=== PATIENT | female | born 2000 | race African-American/Black ===

== ENCOUNTER 2018-09-19 17:58 | Emergency (ER) | payer OTHER ==
[2018-09-19 19:30] LABS: ABS Basophils 0 10^3/ul (0-0.2); ABS Eosinophils 0.1 10^3/ul (0-0.6); ABS Lymphocytes 1.6 10^3/ul (1.0-4.8); ABS Monocytes 0.3 10^3/ul (0-0.8); ABS Neutrophils 2.6 10^3/ul (1.5-7.7); ABS Nucleated RBC 0 10^3/ul; Eosinophil % 1.5 %; Hematocrit 38 % (35-47); Hemoglobin 12.5 g/dl (12.0-16.0); Lymphocyte % 33.7 %; Mean Corpuscular HGB Conc 33 g/dl (31-36); Mean Corpuscular Hemoglobin 30 pg (27-31); Mean Corpuscular Volume 89 fL (80-97); Mean Platelet Volume 8.7 fL (7.4-10.4); Nucleated Red Blood Cells % 0.1; Platelet Count 232 10^3/ul (150-450); Red Cell Distribution Width 16 % (10.5-15); White Blood Count 4.6 10^3/ul (3.5-10.8)
[2018-09-19 19:53] LABS: ALT 9 U/L (7-52); AST 17 U/L (13-39); Albumin 4.4 g/dL (3.2-5.2); Albumin/Globulin Ratio 1.6 (1-3); Alkaline Phosphatase 46 U/L (34-104); Anion Gap 8 mmol/L (2-11); BUN/Creatinine Ratio 16.7 (8-20); Blood Urea Nitrogen 12 mg/dL (6-24); C Reactive Protein < 1.00 mg/L (<8.01); CO2 Carbon Dioxide 29 mmol/L (22-32); Calcium 9.2 mg/dL (8.6-10.3); Chloride 103 mmol/L (101-111); EGFR African American 126.3 (>60); EGFR Non-African American 104.3 (>60); Globulin 2.8 g/dL (2-4); Glucose 81 mg/dL (70-100); Potassium 3.6 mmol/L (3.5-5.0); Sodium 140 mmol/L (135-145); Total Protein 7.2 g/dL (6.4-8.9)
[2018-09-19 19:57] LABS: HCG Pregnancy < 0.60 mIU/mL
[2018-09-19] MEDS ORDERED: Ketorolac INJ* 30 MG/ML 1 ML VIAL IV PUSH ONE (22:35)
[2018-09-19] MEDS ORDERED: Ondansetron INJ* 2 MG/ML VIAL IV ONE (22:35)
[2018-09-19] MEDS ORDERED: NS 0.9% 1000 ML** 3,000 ML IV ONE (22:35)
--- NOTE | 2018-09-19 22:36 | ED ---
Abdominal Pain/Female - HPI Summary HPI Summary: The patient is a 17 y/o F presenting to [facility] with a chief complaint of sudden onset intermittent episodes of suprapubic and LLQ abd pain with hematochezia for the last month and worsening symptoms in the last 5 days. She states that at onset, she had abd cramping with a few tablespoons of bright blood in her stool, and then the cramping resolved but the blood in stool continued up until now with more than half of her BMs containing blood. More recently, in the last 5 days, she has been nauseous with pain radiating from her abd to her back, and an episode of syncope this morning due to pain. The pain does not have any alleviating factors, but it is aggravated by palpation, which she found out from [facility]. Pain is not aggravated by menstrual cycle. The pain is currently rated 7/10 in severity. She denies medical and surgical hx, no previous symptoms of GI issues. She currently takes control, Cymbalta, and iron. LNMP: August 29, 2018. - History of Current Complaint Chief Complaint: EDAbdPain Stated Complaint: ABD PAIN PER PT Time Seen by Provider: 09/19/18 22:26 Hx Obtained From: Patient Onset/Duration: Sudden Onset, Lasting Weeks, Still Present Timing: Weeks Severity Initially: Mild Severity Currently: Moderate Pain Intensity: 7 Pain Scale Used: 0-10 Numeric Location: Discrete At: LLQ, Suprapubic Radiates: Yes Radiates to: Back - low back especially on left Character: Dull Aggravating Factor(s): Other: - palpation Alleviating Factor(s): Nothing Associated Signs and Symptoms: Positive: Back Pain - low back, Blood in Stool, Nausea, Vomiting, Other: - syncope. Negative: Diarrhea Allergies/Adverse Reactions: Allergies Allergy/AdvReac Type Severity Reaction Status Date / Time No Known Allergies Allergy Verified 09/19/18 18:29 Home Medications: Home Medications DULoxetine CAP* [Cymbalta CAP*] 60 mg PO DAILY 09/19/18 [History Confirmed ] PMH/Surg Hx/FS Hx/Imm Hx Endocrine/Hematology History: Denies: Hx Diabetes Respiratory History: Denies: Hx Asthma GI History: Denies: Hx Crohn's Disease Sensory History: Denies: Hx Deafness Opthamlomology History: Denies: Hx Legally Blind EENT History: Denies: Hx Deafness - Surgical History Surgery Procedure, Year, and Place: none Infectious Disease History: No Infectious Disease History: Denies: Traveled Outside the [place] in Last 30 Days - Family History Known Family History: Negative: Diabetes - Social History Alcohol Use: None Hx Substance Use: No Hx Tobacco Use: No Review of Systems Positive: Abdominal Pain - suprapubic but mostly LLQ , Vomiting, Nausea, Other - hematochezia - bright red blood with otherwise normal stool. Negative: Diarrhea Positive: Other - low back pain, especially on left Neurological: Other - syncope due to pain (one episode) All Other Systems Reviewed And Are Negative: Yes Physical Exam - Summary Physical Exam Summary: Appearance: Well-appearing, Well-nourished, lying in bed comfortably Skin: Warm, dry, no obvious rash Eyes: sclera anicteric, no conjunctival pallor ENT: mucous membranes moist, pharynx appears normal Neck: Supple, nontender Respiratory: Clear to auscultation, no signs of respiratory distress Cardiovascular: Normal S1, S2. No murmurs. Normal distal pulses in tibial and radial bilaterally. Abdomen: Soft, focal LLQ tenderness with some guarding, normal active bowel sounds present Musculoskeletal: Normal, Strength/ROM Intact Neurological: A&Ox3, awake and alert, mentation is normal, speech is fluent and appropriate Psychiatric: affect is normal, does not appear anxious or depressed Triage Information Reviewed: Yes Vital Signs On Initial Exam: Initial Vitals Temp Pulse Resp BP Pulse Ox 98.7 F 75 16 103/59 100 09/19/18 18:26 09/19/18 18:26 09/19/18 18:26 09/19/18 18:26 09/19/18 18:26 Vital Signs Reviewed: Yes Diagnostics - Vital Signs Vital Signs Temp Pulse Resp BP Pulse Ox 09/19/18 21:23 97.8 F 79 16 122/59 98 09/19/18 19:23 99.6 F 82 16 98/60 99 09/19/18 18:26 98.7 F 75 16 103/59 100 - Laboratory Lab Results: Lab Results 09/19/18 09/19/18 Range/Units 19:22 19:22 WBC 4.6 (3.5-10.8) 10^3/ul RBC 4.20 (4.00-5.40) 10^6/ul Hgb 12.5 (12.0-16.0) g/dl Hct 38 (35-47) % MCV 89 (80-97) fL MCH 30 (27-31) pg MCHC 33 (31-36) g/dl RDW 16 H (10.5-15) % Plt Count 232 (150-450) 10^3/ul MPV 8.7 (7.4-10.4) fL Neut % (Auto) 57.2 % Lymph % (Auto) 33.7 % [place] % (Auto) 7.1 % Eos % (Auto) 1.5 % Baso % (Auto) 0.5 % Absolute Neuts (auto) 2.6 (1.5-7.7) 10^3/ul Absolute Lymphs (auto) 1.6 (1.0-4.8) 10^3/ul Absolute Monos (auto) 0.3 (0-0.8) 10^3/ul Absolute Eos (auto) 0.1 (0-0.6) 10^3/ul Absolute Basos (auto) 0 (0-0.2) 10^3/ul Absolute Nucleated RBC 0 10^3/ul Nucleated RBC % 0.1 Sodium 140 (135-145) mmol/L Potassium 3.6 (3.5-5.0) mmol/L Chloride 103 (101-111) mmol/L Carbon Dioxide 29 (22-32) mmol/L Anion Gap 8 (2-11) mmol/L BUN 12 (6-24) mg/dL Creatinine 0.72 (0.51-0.95) mg/dL Est GFR ( Amer) 126.3 (>60) Est GFR (Non-Af Amer) 104.3 (>60) BUN/Creatinine Ratio 16.7 (8-20) Glucose 81 (70-100) mg/dL Calcium 9.2 (8.6-10.3) mg/dL Total Bilirubin 0.50 (0.2-1.0) mg/dL AST 17 (13-39) U/L ALT 9 (7-52) U/L Alkaline Phosphatase 46 (34-104) U/L C-Reactive Protein < 1.00 (<8.01) mg/L Total Protein 7.2 (6.4-8.9) g/dL Albumin 4.4 (3.2-5.2) g/dL Globulin 2.8 (2-4) g/dL Albumin/Globulin Ratio 1.6 (1-3) Beta HCG, Quant < 0.60 mIU/mL Result Diagrams: 09/19/18 19:22 09/19/18 19:22 Lab Statement: Any lab studies that have been ordered have been reviewed, and results considered in the medical decision making process. - CT Abd/Pel CT CT Interpretation Completed By: Radiologist Summary of CT Findings: 1. A 1.9 cm probable hemorrhagic left ovarian cyst. Small free fluid in the pelvis. If clinically indicated, further evaluation with pelvic ultrasound may be considered. 2. Mild hepatomegaly with mild periportal edema which could be seen in the setting of hepatitis. ED physician has reviewed this report. Re-Evaluation - Re-Evaluation First Eval Re-Evaluation Time: 02:30 Change: Unchanged Comment: I spoke with the patient concerning CT results and discharge. Abdominal Pain Fem Course/Dx - Course Course Of Treatment: The patient is a 17 y/o F with a chief complaint of sudden onset intermittent episodes of suprapubic and LLQ abd pain with hematochezia for the last month and worsening symptoms in the last 5 days. Initially she had abd cramping with a few tablespoons of bright blood in her stool. More than half of her BMs since then have contained blood. In the last 5 days, she has been nauseous with pain radiating from her abd to her back, and an episode of syncope this morning due to pain. Takes PO control, Cymbalta, and iron. Upon physical examination, the patient exhibits focal LLQ tenderness with some guarding. In the ED course, the patient was given Ns, Zofran, and Toradol. Lab work reveals no significant results. UA is negative. Abd/Pel CT reveals hemorrhagic left ovarian cyst. She is diagnosed with left hemorrhagic ovarian cyst. We discussed discharge home and she agrees with the plan and understands the need for return to the ED if necessary. - Diagnoses Differential Diagnosis: Positive: Appendicitis, Diverticulitis, Ectopic , Irritable Bowel Syndrome, Ovarian Cyst, Pelvic Inflammatory Disease Provider Diagnoses: Hemorrhagic cyst of left ovary Discharge - Sign-Out/Discharge Documenting (check all that apply): Patient Departure - Patient will be discharged home. Patient Received Moderate/Deep Sedation with Procedure: No - Discharge Plan Condition: Good Disposition: HOME Prescriptions: Ondansetron ODT TAB* [Zofran 4 MG Odt TAB*] 8 mg PO Q6H PRN #[id number] tab.odt PRN Reason: Nausea Patient Education Materials: Ovarian Cyst (ED) Referrals: [facility] [Outside] Additional Instructions: Fortunately the only significant finding on your CT scan is a 2 cm hemorrhagic left ovarian cyst. Since you have been having symptoms for several weeks, if the cyst is the cause, it would seem to not be healing well like most cysts do. 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 You will likely be referred for and US. 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 In the interim, OTC alleve or motrin would be ok to take for this, and I will prescribe something for the nausea. - Billing Disposition and Condition Condition: GOOD Disposition: Home - Attestation Statements Document Initiated by Aleydae: Yes Documenting Scribe: Kenya Lehman Provider For Whom Maria Esther is Documenting (Include Credential): Dr. Nolan Rodgers MD Scribe Attestation: I, Kenya Lehman, scribed for Dr. Nolan Rodegrs MD on 09/20/18 at 0450. Scribe Documentation Reviewed: Yes Provider Attestation: The documentation as recorded by the Kenya murguia accurately reflects the service I personally performed and the decisions made by me, Dr. Nolan Rodgers MD Status of Scribalexi Document: Viewed
[2018-09-20] MEDS ORDERED: Iohexol 300* (CONTRAST) 10 ML SDV IV ONE (00:26)
[2018-09-20 00:31] LABS: Urine Appearance Clear; Urine Bilirubin Negative (Negative); Urine Blood Negative (Negative); Urine Color Yellow; Urine Glucose Negative (Negative); Urine Ketones Trace (Negative); Urine Nitrite Negative (Negative); Urine Protein Negative (Negative); Urine Urobilinogen Negative (Negative)
[2018-09-20 02:47] VITALS: BP 100/62
== END 2018-09-20 02:44 | disposition home or self-care (01) ==
LOC: ED 17:58
DX: N83.202 Unspecified ovarian cyst, left side (principal); M54.2 Cervicalgia; R11.2 Nausea with vomiting, unspecified; R10.32 Left lower quadrant pain
CPT/HCPCS: 36415; 74177; 80053; 81003; 84702; 85025; 86140; 96361; 96374; 96375; 99283; J1885; J2405; Q9967